=== PATIENT | male | born 1990 | race Caucasian/White ===

== ENCOUNTER → 2023-05-19 16:18 | Outpatient (CLI) | payer OTHER, SELFPAY ==
--- NOTE | 2023-05-19 | DI.MRI.S_ITS ---
PROCEDURE: MR SHOULDER LT WO CON INDICATIONS: TRAUMATIC SHOULDER INJURY OF LEFT SHOULDER TECHNIQUE: Noncontrast oblique coronal T2 fast spin echo with fat saturation, oblique sagittal T1 spin echo and T2 fast spin echo with fat saturation, axial T1 spin echo and T2 fast spin echo with fat saturation through the shoulder. COMPARISON: [facility], CT, CT SHOULDER LEFT WITHOUT CONTRAST, 05/09/2023, 13:53. FINDINGS: Image quality: Diagnostic Rotator cuff: Bulk: No significant atrophy Teres minor: Moderate edema and nearly full-thickness tear Supraspinatus: Full-thickness tear and edema. There is tendinous retraction to the level of the acromioclavicular joint. Infraspinatus: Full-thickness tear with tendinous retraction to the level of the acromioclavicular joint Subscapularis: Full-thickness tear in the mid tendon. Moderate edema. Bones and bursae: GH joint: Moderate effusion. There is superior positioning of the humeral head AC joint: Intact Humeral head: Moderate edema of the humeral head. Small avulsion fracture fragment from the anterior humeral head adjacent to the lesser tuberosity, better seen on CT. Scapula and acromion: Unremarkable Bursa: Joint effusion extends into the bursa Capsule: Labrum: No discrete tear Long head biceps tendon: Dislocated out of the bicipital groove. The glenoid insertion is intact. IGHL: Moderate edema, with partial detachment of the humeral aspect. Rotator interval: Effaced with edema Soft tissues: Subcutaneous soft tissue swelling. There is also a deltoid muscular contusion. IMPRESSION: Full-thickness supraspinatus and infraspinatus tendon tears, with retraction. There is also a mid subscapularis tear and dislocation of the long head biceps tendon. High-grade injury also seen in the teres minor. Avulsion fracture fragment adjacent to the lesser tuberosity, better seen on CT. Additional contusion related edema throughout the humeral head. Partial detachment of the inferior glenohumeral ligament with capsular injury adjacent to the humeral head. Moderate glenohumeral edema and superior positioning of the humeral head. Bursal fluid extends from the joint effusion. Dictated by: Abe Begum M.D. on 05/20/2023 at 10:28 Approved by: Abe Begum M.D. on 05/20/2023 at 10:36
== END ==
LOC: MRI 16:22
PROVIDERS: Referring Provider Physician Assistant; Visit Provider Physician Assistant
DX: S46.012A Strain of muscle(s) and tendon(s) of the rotator cuff of left shoulder, initial encounter (principal); S46.112A Strain of muscle, fascia and tendon of long head of biceps, left arm, initial encounter; S42.262A Displaced fracture of lesser tuberosity of left humerus, initial encounter for closed fracture; M25.412 Effusion, left shoulder; X58.XXXA Exposure to other specified factors, initial encounter
CPT/HCPCS: 73221

== ENCOUNTER 2023-05-19 17:16 | Emergency (ER) | payer OTHER, SELFPAY ==
[2023-05-19 17:20] VITALS: BP 156/77; PULSE 133; RESP 20; TEMP 37.4; O2SAT 99; BMI 27.3
[2023-05-19 17:35] VITALS: BP 165/72; PULSE 134; O2SAT 98
[2023-05-19 18:00] VITALS: BP 158/81; PULSE 107; RESP 20; O2SAT 98
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
--- NOTE | 2023-05-19 18:07 | PC.NURSE ---
Patient has extensive yellowing bruising hand, arm and shoulder as well as right hand. Patient has bruising on right lower abdomen with a firmness noted with tenderness on egg shaped right lower quadrant abdomen pain. Patient has a bruising on right chest. Patient has bruising with left eye.
[2023-05-19 18:12] LABS: Add Manual Diff / Slide Review NO; Basophils Absolute Auto 100 /uL (0-100); Basophils Percent Auto 0.8 % (0-2); Eosinophils Absolute Auto 500 /uL (0-450); Eosinophils Percent Auto 6.5 % (2-4); Hematocrit 41.1 % (41-53); Hemoglobin 14.3 g/dL (13.5-17.5); Lymphocytes Absolute Auto 1400 /uL (1100-4500); Lymphocytes Percent Auto 16.4 % (25-40); Mean Corpuscular HGB Conc 34.8 % (30-36); Mean Corpuscular Hemoglobin 30.8 PG (26-34); Mean Corpuscular Volume 88.5 fL (80-100); Monocytes Absolute Auto 500 /uL (0-900); Monocytes Percent Auto 6.1 % (3-14); Neutrophils Absolute Auto 5800 /uL (1500-7000); Neutrophils Percent Auto 70.2 % (50-75); Platelet Count 315 X10^3/uL (150-400); Red Blood Cell Count 4.64 X10^6/uL (4.5-5.9); Red Cell Distribution Width 12.7 % (11.6-14.8); White Blood Cell Count 8.2 X10^3/uL (4.5-11.0)
[2023-05-19 18:18] LABS: Alanine Aminotransferase 69 IU/L (<50); Albumin 4.9 g/dL (3.5-5.0); Albumin Globulin Ratio 1.4 (1.0-2.8); Alkaline Phosphatase 88 U/L (38-126); Aspartate Aminotransferase 44 IU/L (17-59); BUN Creatinine Ratio 18.8 (6-22); Bilirubin Total 0.7 mg/dL (0.2-1.3); Blood Urea Nitrogen 16 mg/dL (9-20); Calcium 9.8 mg/dL (8.4-10.2); Carbon Dioxide 28 mmol/L (22-32); Chloride 106 mmol/L (98-107); Estimated Glomerular Filt Rate > 60 mL/min (>60); Globulin 3.6 g/dL (1.7-4.1); Glucose 95 mg/dL (70-100); HEMOLYSIS 25 (0-50); Lipase 187 U/L (23-300); Potassium 3.7 mmol/L (3.4-5.1); Sodium 142 mmol/L (137-145); Total Protein 8.5 g/dL (6.3-8.2)
[2023-05-19 18:30] VITALS: BP 145/64; PULSE 108; RESP 14; O2SAT 97
[2023-05-19 19:00] VITALS: BP 138/61; PULSE 103; RESP 12; O2SAT 98
== END 2023-05-19 19:12 | disposition home or self-care (01) ==
PROVIDERS: Emergency Provider Emergency Medicine
DX: S30.1XXA Contusion of abdominal wall, initial encounter (principal); V29.99XD Rider (driver) (passenger) of other motorcycle injured in unspecified traffic accident, subsequent encounter; S46.012A Strain of muscle(s) and tendon(s) of the rotator cuff of left shoulder, initial encounter; S46.112A Strain of muscle, fascia and tendon of long head of biceps, left arm, initial encounter; S42.262A Displaced fracture of lesser tuberosity of left humerus, initial encounter for closed fracture; M25.412 Effusion, left shoulder; X58.XXXA Exposure to other specified factors, initial encounter
CPT/HCPCS: 36415; 73221; 80053; 83690; 85025; 99284

== ENCOUNTER → 2023-09-29 13:10 | Outpatient (CLI) | payer OTHER, SELFPAY ==
--- NOTE | 2023-09-29 13:13 | DI.RAD.S_ITS ---
PROCEDURE: FL SHOULDER INJECTION MR/CT LT INDICATIONS: LT SHOULDER PAIN COMPARISON: [facility], CR, XR SHOULDER 2+ VIEWS LEFT, 09/13/2023, 14:19. TECHNIQUE: The indications, alternatives, benefits, risks, and complications of the procedure were explained to the patient. Written informed consent was obtained and placed in the chart. The shoulder was examined fluoroscopically and a site for needle placement chosen for entry into the glenohumeral joint from an anterior approach. The skin was prepped and draped in a sterile fashion, and 1% lidocaine infiltrated from skin down to joint capsule. A spinal needle was inserted into the glenohumeral joint, and a small amount of iodinated contrast media injected to confirm intra-articular placement of the needle tip. This was followed by approximately 12 mL dilute solution of a gadolinium containing MR contrast agent. The needle was removed and a dressing was applied. The patient was given postprocedural instructions and sent to the MR suite for MR imaging. FINDINGS: A single fluoroscopic spot image demonstrates intra-articular location of injected iodinated contrast. IMPRESSION: Successful fluoroscopically guided administration of dilute Gadolinium solution into the shoulder joint for MR arthrogram. Approved by: Zay Haro M.D. on 09/29/2023 at 15:20
[2023-09-29] MEDS: LIDOCAINE 1% 20 ML INJ (14:05)
[2023-09-29] MEDS: SODIUM CHLORIDE 0.9 % 20 ML VIAL IV (14:05)
--- NOTE | 2023-09-29 15:00 | DI.MRI.S_ITS ---
PROCEDURE: MR SHOULDER LT W CON INDICATIONS: LT SHOULDER PAIN TECHNIQUE: After the administration of 12 mL of dilute intra-articular Gadolinium contrast, oblique coronal T1 and T2 spin echo with fat saturation, oblique sagittal T1 spin echo with and without fat saturation, oblique sagittal T2 fast spin echo with fat saturation, axial T1 spin echo with fat saturation through the shoulder. COMPARISON: [facility], MR, MR SHOULDER LT WO CON, 05/19/2023, 16:37. FINDINGS: Image quality: Excellent. Rotator cuff: Postsurgical changes are noted from prior rotator cuff tendon repair. There is full-thickness rupture involving mid to posterior fibers of distal supraspinatus and distal infraspinatus at their insertions on humeral head with up to 4.6 cm medial retraction of torn tendon fibers to the level of acromioclavicular joint. The subscapularis tendon is intact. Mild supraspinatus and infraspinatus muscle atrophy is seen on sagittal images. Bones and bursae: Postsurgical changes are noted in posterior and lateral humeral head with susceptibility artifacts. Geographic area of T2 hyperintense signal involving posterior medial aspect of superior humeral head is seen concerning for developing osteo necrosis in this area . No acute fracture or dislocation. Moderate acromioclavicular joint osteoarthritic changes are seen. Superior migration of humeral head in relation to glenoid is also noted. Capsule and soft tissues: The labrum and glenohumeral ligaments appear intact. The long head of the biceps tendon is not visualized intra-articularly. The rotator interval appears normal, without fibrosis. The coracohumeral ligament is of normal thickness. No intra-articular bodies. IMPRESSION: 1. Prior rotator cuff repair with postsurgical changes. Questionable geographic area of T2 hyperintense signal involving superior and posterior medial aspect of humeral head adjacent to the surgical hardware, concerning for developing avascular necrosis. Superior migration of humeral head in relation to glenoid is also noted. Moderate acromioclavicular joint osteoarthritis. No acute fracture or dislocation. No definite intra-articular loose bodies. 2. Suggestion of full-thickness rupture involving mid to posterior fibers of distal supraspinatus and distal infraspinatus at their insertions on humeral head with up to 4.6 cm medial retraction of torn tendon fibers to the level of acromioclavicular joint. Mild supraspinatus and infraspinatus muscle atrophy. 3. No evidence of focal labral tear. 4. Nonvisualization of proximal intra-articular portion of long head of biceps, which may indicate postsurgical changes versus torn and retracted proximal long head of biceps tendon. Dictated by: Aaron Kelley M.D. on 09/30/2023 at 8:24 Approved by: Aaron Kelley M.D. on 09/30/2023 at 8:40
== END ==
LOC: RAD 13:12
PROVIDERS: Referring Provider Orthopaedic Surgery; Visit Provider Orthopaedic Surgery
DX: S42.202A Unspecified fracture of upper end of left humerus, initial encounter for closed fracture (principal); M19.012 Primary osteoarthritis, left shoulder; Z98.890 Other specified postprocedural states; M62.512 Muscle wasting and atrophy, not elsewhere classified, left shoulder
CPT/HCPCS: 23350; 73040; 73222; A9579; Q9967